=== PATIENT | female | born 1995 | race Two or more races ===

== ENCOUNTER 2016-08-30 18:28 | Emergency (ER) | payer OTHER ==
[~2016-08-30 18:28] MED LIST: ACET50TA PO; COLA100C PO; DIBU1OI TOP; DICL10TA PO; DOCU10CA PO; GLYB125TA PO; GLYB3TA PO; IBUP80TA PO; MOM30SS PO; MOTR200T44 PO; PERC5TAB6 PO; PRENTAB55 PO
[2016-08-30] MEDS ORDERED: ONDANSETRON 4MG/2ML VIAL (J2405) As Ordered ONE (19:09)
[2016-08-30] MEDS ORDERED: KETOROLAC 30 MG/ML VIAL (J1885) As Ordered ONE (19:09)
--- NOTE | 2016-08-30 19:16 | REP ---
Clinical: Epigastric and abdominal pain. Technique: Upright view of the chest with supine and upright views of the abdomen and pelvis. Findings: Frontal upright view of the chest demonstrates no acute cardiopulmonary process or free air below the diaphragm to suspect pneumoperitoneum. Supine and upright views of the abdomen and pelvis demonstrate nonspecific bowel gas pattern without obstruction or perforation. No organomegaly. Tubal ligation clips. No abnormal calcifications. Skeletal structures normal for age. Impression: Nonspecific bowel gas pattern. Signed by Aubrey Owusu MD 08/30/2016 07:08 P
[2016-08-30 19:24] LABS: BASO % 0.5 % (0.0-1.0); EOS # 0.2 K/mm3 (0.0-0.50); EOS % 3.6 % (0.0-3.0); LARGE UNSTAINED CELL # 0.1 K/mm3 (0.0-0.4); LARGE UNSTAINED CELL % 1.8 % (0.0-4.0); LYMPH # 1.2 K/mm3 (1.5-6.5); LYMPH % 23.1 % (24.0-44.0); MEAN CORPUSCULAR HGB CONC 34.1 g/dl (32.0-36.5); MEAN CORPUSCULAR VOLUME 88.1 fl (80.0-96.0); MONO # 0.4 K/mm3 (0.0-0.8); MONO % 6.7 % (0.0-5.0); NEUTROPHILS # 3.4 K/mm3 (1.8-7.7); NEUTROPHILS % 64.3 % (36.0-66.0); PLATELET COUNT, AUTOMATED 207 k/mm3 (150-450); RED CELL DISTRIBUTION WIDTH 11.9 % (11.5-14.5); WHITE BLOOD COUNT 5.3 K/mm3 (4.0-10.0)
[2016-08-30 19:31] LABS: INR 0.89
[2016-08-30 19:50] LABS: ALBUMIN 3.7 GM/DL (3.2-5.2); ALBUMIN/GLOBULIN RATIO 1.09 (1.00-1.93); ALKALINE PHOSPHATASE 106 U/L (45-117); ALT/SGPT 24 U/L (12-78); AMYLASE 53 U/L (25-115); ANION GAP 9 MEQ/L (8-16); AST/SGOT 17 U/L (15-37); BILIRUBIN,DIRECT < 0.1 MG/DL (0.0-0.2); BILIRUBIN,TOTAL 0.2 MG/DL (0.2-1.0); BLOOD UREA NITROGEN 9 MG/DL (7-18); CALCIUM LEVEL 8.3 MG/DL (8.5-10.1); CARBON DIOXIDE LEVEL 25 MEQ/L (21-32); CHLORIDE LEVEL 108 MEQ/L (98-107); CREATININE FOR GFR 0.68 MG/DL (0.55-1.02); GLOMERULAR FILTRATION RATE > 60.0 (>60); GLUCOSE, FASTING 94 MG/DL (70-105); SODIUM LEVEL 142 MEQ/L (136-145); TOTAL PROTEIN 7.1 GM/DL (6.4-8.2)
--- NOTE | 2016-08-30 21:28 | EDDOCDS ---
Nurse's Notes [facility] Name: Rosita Chambers Age: 21 yrs Sex: Female : 1995 Arrival Date: 08/30/2016 Time: 18:28 Bed 14 Private MD: DONI Higgins Diagnosis: Abdominal and pelvic pain Presentation: 08/30 18:47 Presenting complaint: Patient states: states right upper quad pain x 2 days, states ml6 vomited x 1 yesterday. Risk factors: the patient reports no vaginal bleeding. Adult Sepsis Screening: The patient does not have new or worsening altered mentation. Patient's respiratory rate is less than 22. Systolic blood pressure is greater than 100. Patient has a qSOFA score of 0- Negative Sepsis Screen. Suicide/Homicide risk assessment- the patient denies having any suicidal and/or homicidal ideations and does not present with any other emotional, behavioral or mental health complaints. Status: Patient is not a marine service station attendant or dependent. Transition of care: patient was not received from another setting of care. 18:47 Acuity: LIANG Level 3 ml6 18:47 Method Of Arrival: Ambulance ml6 Triage Assessment: 18:48 General: Appears in no apparent distress, Behavior is anxious, cooperative. Pain: ml6 Location: right upper quadrant Pain currently is 5 out of 10 on a pain scale. Pain does not radiate. Quality of pain is described as aching, crampy, Pain began 2-3 days ago Is continuous Alleviated by nothing. Aggravated by increased activity. HIV screening NA for this visit Offered previously. Neurological: No deficits noted. Level of Consciousness is awake, alert, Oriented to person, place, time, Felt Checker are equal bilaterally Moves all extremities. Full function. Cardiovascular: No deficits noted. Capillary refill < 3 seconds is brisk in bilateral fingers toes Heart tones S1 S2 present Edema is absent. Pulses are all present. Respiratory: No deficits noted. Airway is patent Respiratory effort is even, unlabored, Respiratory pattern is regular, symmetrical, Breath sounds are clear bilaterally. GI: Abdomen is obese, Bowel sounds present X 4 quads. Abd is soft X 4 quads Abd is tender to palpation in right upper quadrant Reports nausea, Denies diarrhea, vomiting. Historical: - Allergies: no known allergies; - Home Meds: 1. Vitamin Oral tab 1 tab once daily (Last dose: 08/30/2016 07:00) - PMHx: none; - PSHx: Tubal ligation; - Social history: Smoking status: Patient uses tobacco products, heavy tobacco smoker. No barriers to communication noted, Speaks appropriately for age. - Family history: Not pertinent. - : The pt / caregiver states he / she is not on anticoagulants. Home medication list is obtained from the patient. - Exposure Risk Screening:: None identified. Screenin:50 Screening information is obtained from the patient. Fall risk: No risks identified. ml6 Assistance ADL's: requires no assistance with activities of daily living. Abuse/DV Screen: The patient / caregiver reports he/she is: not in a situation that causes fear, pain or injury. Nutritional screening: No deficits noted. Advance Directives: Currently, there is no health care proxy. home support is adequate. Assessment: 18:48 General: see triage assessment. GI: Abdomen is obese, Bowel sounds present X 4 quads. ml6 Abd is soft X 4 quads Abd is tender to palpation in right upper quadrant Reports nausea, Denies diarrhea, vomiting. 20:00 Reassessment: Patient appears in no apparent distress at this time. Patient states tm5 feeling better. Patient states symptoms have improved. pt ambulated to the bathroom with steady gait & no complaints. 21:24 Reassessment: Patient appears in no apparent distress at this time. Patient states tm5 feeling better. Patient states symptoms have improved. Vital Signs: 18:42 BP 138 / 89 RA Sitting (auto/reg); Pulse 89; Resp 18; Temp 96.8(O); Pulse Ox 98% ; jrd Weight 83.01 kg (R); Height 5 ft. 3 in. (160.02 cm) (R); Pain 6/10; 20:18 BP 126 / 78; Pulse 88; Resp 18; Pulse Ox 99% on R/A; Pain 3/10; tm5 21:25 BP 123 / 78; Pulse 66; Resp 18; Temp 97.7(O); Pulse Ox 97% on R/A; Pain 1/10; jmv 18:42 Body Mass Index 32.42 (83.01 kg, 160.02 cm) [facility] ED Course: 18:29 Patient visited by Aide Lazaro, Food Server. lbd 18:29 Patient moved to Waiting lbd 18:30 DONI Higgins is Private Physician. lbd 18:30 Coni Plummer,ROMINA is Primary Nurse. lbd 18:30 Patient moved to 14 lbd 18:40 [facility]il[facility] FNP [facility]. ke 18:40 Patient visited by Diego Dasilva FNP. ke 18:40 Patient visited by Diego Dasilva FNP. ke 18:44 Patient visited by Melchor Hernandez PCA. jrd 18:48 Triage Initiated ml6 18:51 The patient / caregiver is instructed regarding the plan of care and ED course. js13 18:51 Maintain field IV. Dressing intact. Good blood return noted. Site clean & dry. Gauge & js13 site: 20 gauge LAC. No procedures done that require assistance. 18:55 Patient moved to Radiology js13 19:05 Patient visited by Sintia Keen RN. tm5 19:05 Report received from Bisi Chamorro RN, assumed care of pt at this time. tm5 19:15 Labs drawn. (by ED staff). Sent per order to lab. tm5 19:17 Amylase Sent. tm5 19:17 Basic Metabolic Profile Sent. tm5 19:17 CBC with Diff Sent. tm5 19:17 Lipase Sent. tm5 19:17 Liver Profile Sent. tm5 19:17 Prothrombin Time Profile\E\INR Sent. tm5 19:49 Patient moved to 14 tmb 19:50 Patient visited by Diego Dasilva FNP. ke 19:51 Abdomen, Flat\E\Upright,PA Chest Returned. EDMS 20:17 Patient visited by Sintia Keen RN. tm5 20:17 Urinalysis Sent. tm5 20:17 Urine Culture Sent. tm5 20:17 Urine collected. Clean catch specimen. Urine specimen sent to lab. tm5 20:46 [facility] Payment Agreement was scanned into [employer] and attached to record. zo 20:50 Patient visited by Sintia Keen RN. tm5 21:05 DONI Higgins is Referral Physician. ke 21:05 Guanaco Paniagua is Referral Physician. ke 21:24 Patient visited by Sintia Keen RN. tm5 21:24 Discontinued lock intact, bleeding controlled, pressure dressing applied, No tm5 redness/swelling at site. 21:26 Patient visited by Molina Simons PCA. joyce Administered Medications: 19:17 Drug: NS 0.9% 1000 ml [sodium chloride 0.9 % intravenous solution] Route: IV; Rate: tm5 bolus; Site: left antecubital; 20:50 Follow up: IV Status: Completed infusion; IV Intake: 1000ml tm5 19:17 Drug: Ondansetron 4 mg [ondansetron HCl 2 mg/mL intravenous solution (2 mL)] Route: tm5 IVP; Site: left antecubital; 20:00 Follow up: Response: Nausea is resolved; No Adverse Reaction tm5 19:17 Drug: ketorolac 30 mg [ketorolac 30 mg/mL (1 mL) injection solution (1 mL)] Route: IVP; tm5 Site: left antecubital; 20:00 Follow up: Response: No Adverse Reaction; Pain is decreased tm5 Intake: 20:50 IV: 1000.00ml; Total: 1000.00ml. 5 Order Results: Lab Order: Amylase; SPEC'M 08/30/16 19:15 Test: AMYLASE; Value: 53; Range: 25-115; Units: U/L; Status: F Lab Order: Basic Metabolic Profile; SPEC'M 08/30/16 19:15 Test: GLUCOSE, FASTING; Value: 94; Range: 70-105; Units: MG/DL; Status: F Test: BLOOD UREA NITROGEN; Value: 9; Range: 7-18; Units: MG/DL; Status: F Test: CREATININE FOR GFR; Value: 0.68; Range: 0.55-1.02; Units: MG/DL; Status: F Test: GLOMERULAR FILTRATION RATE; Value: > 60.0; Range: >60; Status: F Test: SODIUM LEVEL; Value: 142; Range: 136-145; Units: MEQ/L; Status: F Test: POTASSIUM SERUM; Value: 4.0; Range: 3.5-5.1; Units: MEQ/L; Status: F Test: CHLORIDE LEVEL; Value: 108; Range: 98-107; Abnormal: Above high normal; Units: MEQ/L; Status: F Test: CARBON DIOXIDE LEVEL; Value: 25; Range: 21-32; Units: MEQ/L; Status: F Test: ANION GAP; Value: 9; Range: 8-16; Units: MEQ/L; Status: F Test: CALCIUM LEVEL; Value: 8.3; Range: 8.5-10.1; Abnormal: Below low normal; Units: MG/DL; Status: F Test Note: ; Units are mL/min/1.73 m2 Chronic Kidney Disease Staging per NKF: Stage I & II GFR >=60 Normal to Mildly Decreased Stage III GFR 30-59 Moderately Decreased Stage IV GFR 15-29 Severely Decreased Stage V GFR <15 Very Little GFR Left ESRD GFR <15 on NPS Lab Order: CBC with Diff; SPEC'M 08/30/16 19:15 Test: WHITE BLOOD COUNT; Value: 5.3; Range: 4.0-10.0; Units: K/mm3; Status: F Test: RED BLOOD COUNT; Value: 4.52; Range: 4.00-5.40; Units: M/mm3; Status: F Test: HEMOGLOBIN; Value: 13.6; Range: 12.0-16.0; Units: g/dl; Status: F Test: HEMATOCRIT; Value: 39.8; Range: 36.0-47.0; Units: %; Status: F Test: MEAN CORPUSCULAR VOLUME; Value: 88.1; Range: 80.0-96.0; Units: fl; Status: F Test: MEAN CORPUSCULAR HEMOGLOBIN; Value: 30.0; Range: 27.0-33.0; Units: pg; Status: F Test: MEAN CORPUSCULAR HGB CONC; Value: 34.1; Range: 32.0-36.5; Units: g/dl; Status: F Test: RED CELL DISTRIBUTION WIDTH; Value: 11.9; Range: 11.5-14.5; Units: %; Status: F Test: PLATELET COUNT, AUTOMATED; Value: 207; Range: 150-450; Units: k/mm3; Status: F Test: NEUTROPHILS %; Value: 64.3; Range: 36.0-66.0; Units: %; Status: F Test: LYMPH %; Value: 23.1; Range: 24.0-44.0; Abnormal: Below low normal; Units: %; Status: F Test: MONO %; Value: 6.7; Range: 0.0-5.0; Abnormal: Above high normal; Units: %; Status: F Test: EOS %; Value: 3.6; Range: 0.0-3.0; Abnormal: Above high normal; Units: %; Status: F Test: BASO %; Value: 0.5; Range: 0.0-1.0; Units: %; Status: F Test: LARGE UNSTAINED CELL %; Value: 1.8; Range: 0.0-4.0; Units: %; Status: F Test: NEUTROPHILS #; Value: 3.4; Range: 1.8-7.7; Units: K/mm3; Status: F Test: LYMPH #; Value: 1.2; Range: 1.5-6.5; Abnormal: Below low normal; Units: K/mm3; Status: F Test: MONO #; Value: 0.4; Range: 0.0-0.8; Units: K/mm3; Status: F Test: EOS #; Value: 0.2; Range: 0.0-0.50; Units: K/mm3; Status: F Test: BASO #; Value: 0.0; Range: 0.0-0.2; Units: K/mm3; Status: F Test: LARGE UNSTAINED CELL #; Value: 0.1; Range: 0.0-0.4; Units: K/mm3; Status: F Lab Order: Lipase; SPEC' 08/30/16 19:15 Test: LIPASE; Value: 133; Range: 73-393; Units: U/L; Status: F Lab Order: Liver Profile; [facility]' 08/30/16 19:15 Test: AST/SGOT; Value: 17; Range: 15-37; Units: U/L; Status: F Test: ALT/SGPT; Value: 24; Range: 12-78; Units: U/L; Status: F Test: ALKALINE PHOSPHATASE; Value: 106; Range: 45-117; Units: U/L; Status: F Test: BILIRUBIN,TOTAL; Value: 0.2; Range: 0.2-1.0; Units: MG/DL; Status: F Test: BILIRUBIN,DIRECT; Value: < 0.1; Range: 0.0-0.2; Units: MG/DL; Status: F Test: TOTAL PROTEIN; Value: 7.1; Range: 6.4-8.2; Units: GM/DL; Status: F Test: ALBUMIN; Value: 3.7; Range: 3.2-5.2; Units: GM/DL; Status: F Test: ALBUMIN/GLOBULIN RATIO; Value: 1.09; Range: 1.00-1.93; Status: F Lab Order: Prothrombin Time Profile\E\INR; [facility] 08/30/16 19:15 Test: PROTHROMBIN TIME; Value: 12.2; Range: 12.3-14.5; Abnormal: Below low normal; Units: SECONDS; Status: F Test: INR; Value: 0.89; Status: F Test Note: ; THERAPUTIC HUMAN INR VALUES INDICATIONS NORMAL RANGES PROPHYLAXIS/TREATMENT OF: VENOUS THROMBOSIS 2.0-3.0 PULMONARY EMBOLISM 2.0-3.0 PREVENTION OF SYSTEMIC EMBOLISM FROM: TISSUE HEART VALVES 2.0-3.0 ACUTE MYOCARDIAL INFARCTION 2.0-3.0 VALVULAR HEART DISEASE 2.0-3.0 ATRIAL FIBRILLATION 2.0-3.0 MECHANICAL VALVES(HIGH RISK) 2.5-3.5 RECURRENT MYOCARDIAL INFARCTION 2.5-3.5 Lab Order: Urinalysis; [facility] 08/30/16 20:18 Test: APPEARANCE, URINE; Value: HAZY; Range: CLEAR; Status: F Test: COLOR, URINE; Value: YELLOW; Range: YELLOW; Status: F Test: PH,URINE; Value: 5.0; Range: 5.0-9.0; Units: UNITS; Status: F Test: SPECIFIC GRAVITY URINE AUTO; Value: 1.025; Range: 1.002-1.035; Status: F Test: PROTEIN, URINE AUTO; Value: NEGATIVE; Range: NEGATIVE; Units: mg/dL; Status: F Test: GLUCOSE, URINE (UA) AUTO; Value: NEGATIVE; Range: NEGATIVE; Units: mg/dL; Status: F Test: KETONE, URINE AUTO; Value: NEGATIVE; Range: NEGATIVE; Units: mg/dL; Status: F Test: UROBILINOGEN, URINE AUTO; Value: 0.2; Range: 0.0-2.0; Units: mg/dL; Status: F Test: BILIRUBIN, URINE AUTO; Value: NEGATIVE; Range: NEGATIVE; Status: F Test: NITRITE, URINE AUTO; Value: NEGATIVE; Range: NEGATIVE; Status: F Test: LEUKOCYTE ESTERASE, URINE AUTO; Value: NEGATIVE; Range: NEGATIVE; Status: F Test: BLOOD, URINE BLOOD; Value: NEGATIVE; Range: NEGATIVE; Status: F Test: WBC, URINE AUTO; Value: 0; Range: 0-3; Units: /HPF; Status: F Test: RBC, URINE AUTO; Value: 3; Range: 0-3; Units: /HPF; Status: F Test: BACTERIA, URINE AUTO; Value: 1+; Range: NEGATIVE; Abnormal: Above high normal; Status: F Test: SQUAMOUS EPITHELIAL CELL UR AU; Value: 3; Range: 0-6; Units: /HPF; Status: F Test: MUCUS, URINE; Value: SMALL; Range: NEGATIVE; Status: F Test: HYALINE CAST, URINE AUTO; Value: 0; Range: 0-1; Units: /LPF; Status: F Radiology Order: Abdomen, Flat\E\Upright,PA Chest Test: Abdomen, Flat\E\Upright,PA Chest REASON FOR EXAMINATION: Abdomen Pain; Clinical: Epigastric and abdominal pain.; ; Technique: Upright view of the chest with supine and upright views of the; abdomen and pelvis.; ; Findings: Frontal upright view of the chest demonstrates no acute; cardiopulmonary process or free air below the diaphragm to suspect; pneumoperitoneum. Supine and upright views of the abdomen and pelvis demonstrate; nonspecific bowel gas pattern without obstruction or perforation. No; organomegaly. Tubal ligation clips. No abnormal calcifications. Skeletal; structures normal for age.; ; Impression:; Nonspecific bowel gas pattern.; ; ; Signed by; Aubrey Owusu MD 08/30/2016 07:08 P; Outcome: 21:06 Discharge ordered by Provider. 21:25 Discharge Assessment: Patient awake, alert and oriented x 3. No cognitive and/or tm5 functional deficits noted. Patient verbalized understanding of disposition instructions. patient administered narcotics - no. The following High Risk Discharge criteria are identified: None. Discharged to home ambulatory, with significant other. Condition: good Condition: stable Condition: improved. Discharge instructions given to patient, Instructed on discharge instructions, follow up and referral plans. medication usage, no driving heavy equipment, Demonstrated understanding of instructions, medications, Pt was receptive of discharge instructions/ teaching. Prescriptions given X 3. Ultrasound Study completed. Property :Personal belongings accompany Pt. 21:28 Patient left the ED. tm5 Signatures: Dispatcher [employer] EDMS Aide Lazaro, Food Server Unit lbd Diego Dasilva, ICHTHYOLOGIST ICHTHYOLOGIST Montse Rangel Matthew, RN RN ml6 Coni Plummer,RN RN js13 Martin Negrete Joseph, PHYSIOLOGICAL CHEMIST PHYSIOLOGICAL CHEMIST jrd Molina Simons, PHYSIOLOGICAL CHEMIST PHYSIOLOGICAL CHEMIST jmv Sintia Keen,RN RN tm5 MTDD
--- NOTE | 2016-08-30 21:28 | EDDOCDS ---
Physician Documentation [facility] Name: Rosita Chambers Age: 21 yrs Sex: Female : 1995 Arrival Date: 08/30/2016 Time: 18:28 Bed 14 Private MD: DONI Higgins Disposition: 08/30 21:06 A printed prescription for a controlled substance(s) was provided because [facility] is not able to accept [facility]. Disposition: 08/30/16 21:06 Discharged to Home/Self Care. Impression: Abdominal and pelvic pain. - Condition is Stable. - Discharge Instructions: Abdominal Pain, Adult. - Prescriptions for [place] 5- 325 mg Oral Tablet - take 1 tablet by ORAL route every 6 hours As needed MDD: 4 tabs; 20 tablet. Prilosec 20 mg Oral Capsule - take 1 capsule by ORAL route once daily; 10 capsule. Zofran 4 mg Oral Tablet - take 1 tablet by ORAL route 4 times per day As needed; 10 tablet. - Medication Reconciliation, Local Pharmacy Hours form. - Follow up: DONI Higgins; When: 4 - 5 days; Reason: Recheck today's complaints, Continuance of care. Follow up: Guanaco Paniagua; When: Call to arrange an appointment; Reason: Further diagnostic work-up, Recheck today's complaints. - Problem is an ongoing problem. - Symptoms have improved. Historical: - Allergies: no known allergies; - Home Meds: 1. Vitamin Oral tab 1 tab once daily (Last dose: 08/30/2016 07:00) - PMHx: none; - PSHx: Tubal ligation; - Social history: Smoking status: Patient uses tobacco products, heavy tobacco smoker. No barriers to communication noted, Speaks appropriately for age. - Family history: Not pertinent. - : The pt / caregiver states he / she is not on anticoagulants. Home medication list is obtained from the patient. - Exposure Risk Screening:: None identified. Vital Signs: 18:42 BP 138 / 89 RA Sitting (auto/reg); Pulse 89; Resp 18; Temp 96.8(O); Pulse Ox 98% ; jrd Weight 83.01 kg / 183.01 lbs (R); Height 5 ft. 3 in. (160.02 cm) (R); Pain 6/10; 20:18 BP 126 / 78; Pulse 88; Resp 18; Pulse Ox 99% on R/A; Pain 3/10; tm5 21:25 BP 123 / 78; Pulse 66; Resp 18; Temp 97.7(O); Pulse Ox 97% on R/A; Pain 1/10; jmv 18:42 Body Mass Index 32.42 (83.01 kg, 160.02 cm) jrd MDM: 18:47 NS 0.9% 1000 ml IV at bolus once ordered. ke 18:47 Ondansetron 4 mg IVP once ordered. ke 18:47 ketorolac 30 mg IVP once ordered. ke 18:47 IV Saline Lock ordered. ke 18:47 Undress patient appropriately for examination ordered. ke 18:48 Amylase Ordered. EDMS 18:48 Basic Metabolic Profile Ordered. EDMS 18:48 CBC with Diff Ordered. EDMS 18:48 Lipase Ordered. EDMS 18:48 Liver Profile Ordered. EDMS 18:48 Prothrombin Time Profile\E\INR Ordered. EDMS 18:48 Urinalysis Ordered. EDMS 18:48 Urine Culture Ordered. EDMS 18:49 Abdomen, Flat\E\Upright,PA Chest Ordered. EDMS 18:49 NOTHING BY MOUTH+DIET ordered. EDMS 19:40 Financial registration complete. zo 19:47 US Gallbladder Ordered. EDMS 20:05 Basic Metabolic Profile Reviewed. ke 20:05 CBC with Diff Reviewed. ke 20:05 Prothrombin Time Profile\E\INR Reviewed. ke 20:05 Amylase Reviewed. ke 20:05 Lipase Reviewed. ke 20:05 Liver Profile Reviewed. ke 20:05 Abdomen, Flat\E\Upright,PA Chest Reviewed. ke 20:46 [facility] Payment Agreement was scanned into [employer] and attached to record. zo 21:00 Urinalysis Reviewed. ke Administered Medications: 19:17 Drug: NS 0.9% 1000 ml [sodium chloride 0.9 % intravenous solution] Route: IV; Rate: tm5 bolus; Site: left antecubital; 20:50 Follow up: IV Status: Completed infusion; IV Intake: 1000ml tm5 19:17 Drug: Ondansetron 4 mg [ondansetron HCl 2 mg/mL intravenous solution (2 mL)] Route: tm5 IVP; Site: left antecubital; 20:00 Follow up: Response: Nausea is resolved; No Adverse Reaction tm5 19:17 Drug: ketorolac 30 mg [ketorolac 30 mg/mL (1 mL) injection solution (1 mL)] Route: IVP; tm5 Site: left antecubital; 20:00 Follow up: Response: No Adverse Reaction; Pain is decreased tm5 Signatures: Dispatcher [employer] EDMS Diego Dasilva, ELECTRIC CAR OPERATOR ELECTRIC CAR OPERATOR Montse Rangel Matthew, RN RN ml6 Coni Plummer RN RN js13 Sintia Keen RN RN tm5 The chart was reviewed and I authenticate all verbal orders and agree with the evaluation and treatment provided.Attachments: 20:46 [facility] Payment Agreement zo MTDD
--- NOTE | 2016-08-30 21:30 | REPUSA ---
Clinical history: Right upper quadrant pain. Findings: The pancreas is limited in visualization secondary to overlying bowel gas, but appears jaqueline sly unremarkable. The liver demonstrates uniform echotexture and echogenicity, with no mass lesions. The gallbladder is unremarkable. The common bile duct measures 3 mm and is within normal limits. The right kidney measures 12.8 cm in length and is unremarkable. There is no ascites. Impression: Unremarkable ultrasound examination of the right upper quadrant.
--- NOTE | 2016-09-01 22:29 | EDDOCDS ---
Physician Documentation [facility] Name: Rosita Chambers Age: 21 yrs Sex: Female : 1995 Arrival Date: 08/30/2016 Time: 18:28 Bed 14 Private MD: DONI Higgins Disposition: 08/30 21:06 A printed prescription for a controlled substance(s) was provided because [facility] is not able to accept [facility]. Disposition: 08/30/16 21:06 Discharged to Home/Self Care. Impression: Abdominal and pelvic pain. - Condition is Stable. - Discharge Instructions: Abdominal Pain, Adult. - Prescriptions for Nardin 5- 325 mg Oral Tablet - take 1 tablet by ORAL route every 6 hours As needed MDD: 4 tabs; 20 tablet. Prilosec 20 mg Oral Capsule - take 1 capsule by ORAL route once daily; 10 capsule. Zofran 4 mg Oral Tablet - take 1 tablet by ORAL route 4 times per day As needed; 10 tablet. - Medication Reconciliation, Local Pharmacy Hours form. - Follow up: DONI Higgins; When: 4 - 5 days; Reason: Recheck today's complaints, Continuance of care. Follow up: [place]; When: Call to arrange an appointment; Reason: Further diagnostic work-up, Recheck today's complaints. - Problem is an ongoing problem. - Symptoms have improved. Historical: - Allergies: no known allergies; - Home Meds: 1. Vitamin Oral tab 1 tab once daily (Last dose: 08/30/2016 07:00) - PMHx: none; - PSHx: Tubal ligation; - Social history: Smoking status: Patient uses tobacco products, heavy tobacco smoker. No barriers to communication noted, Speaks appropriately for age. - Family history: Not pertinent. - : The pt / caregiver states he / she is not on anticoagulants. Home medication list is obtained from the patient. - Exposure Risk Screening:: None identified. Vital Signs: 18:42 BP 138 / 89 RA Sitting (auto/reg); Pulse 89; Resp 18; Temp 96.8(O); Pulse Ox 98% ; jrd Weight 83.01 kg / 183.01 lbs (R); Height 5 ft. 3 in. (160.02 cm) (R); Pain 6/10; 20:18 BP 126 / 78; Pulse 88; Resp 18; Pulse Ox 99% on R/A; Pain 3/10; tm5 21:25 BP 123 / 78; Pulse 66; Resp 18; Temp 97.7(O); Pulse Ox 97% on R/A; Pain 1/10; jmv 18:42 Body Mass Index 32.42 (83.01 kg, 160.02 cm) jrd MDM: 18:47 NS 0.9% 1000 ml IV at bolus once ordered. ke 18:47 Ondansetron 4 mg IVP once ordered. ke 18:47 ketorolac 30 mg IVP once ordered. ke 18:47 IV Saline Lock ordered. ke 18:47 Undress patient appropriately for examination ordered. ke 18:48 Amylase Ordered. EDMS 18:48 Basic Metabolic Profile Ordered. EDMS 18:48 CBC with Diff Ordered. EDMS 18:48 Lipase Ordered. EDMS 18:48 Liver Profile Ordered. EDMS 18:48 Prothrombin Time Profile\E\INR Ordered. EDMS 18:48 Urinalysis Ordered. EDMS 18:48 Urine Culture Ordered. EDMS 18:49 Abdomen, Flat\E\Upright,PA Chest Ordered. EDMS 18:49 NOTHING BY MOUTH+DIET ordered. EDMS 19:40 Financial registration complete. zo 19:47 US Gallbladder Ordered. EDMS 20:05 Basic Metabolic Profile Reviewed. ke 20:05 CBC with Diff Reviewed. ke 20:05 Prothrombin Time Profile\E\INR Reviewed. ke 20:05 Amylase Reviewed. ke 20:05 Lipase Reviewed. ke 20:05 Liver Profile Reviewed. ke 20:05 Abdomen, Flat\E\Upright,PA Chest Reviewed. ke 20:46 [facility] [place] Agreement was scanned into [employer] and attached to record. zo 21:00 Urinalysis Reviewed. ke 08/31 09:30 T-Sheet-- Draft Copy was scanned into [employer] and attached to record. [facility] Administered Medications: 08/30 19:17 Drug: NS 0.9% 1000 ml [sodium chloride 0.9 % intravenous solution] Route: IV; Rate: tm5 bolus; Site: left antecubital; 20:50 Follow up: IV Status: Completed infusion; IV Intake: 1000ml tm5 19:17 Drug: Ondansetron 4 mg [ondansetron HCl 2 mg/mL intravenous solution (2 mL)] Route: tm5 IVP; Site: left antecubital; 20:00 Follow up: Response: Nausea is resolved; No Adverse Reaction tm5 19:17 Drug: ketorolac 30 mg [ketorolac 30 mg/mL (1 mL) injection solution (1 mL)] Route: IVP; tm5 Site: left antecubital; 20:00 Follow up: Response: No Adverse Reaction; Pain is decreased tm5 Signatures: Dispatcher [employer] EDDiego Persaud, COLON AND RECTAL SURGEON Montse Ohara Matthew, RN RN ml6 Coni Plummer RN RN [id number] Sosa Beard Tonya, RN RN tm5 The chart was reviewed and I authenticate all verbal orders and agree with the evaluation and treatment provided.Attachments: 20:46 [facility] Payment Agreement zo 08/31 09:30 T-Sheet-- Draft Copy [facility] Chart Complete MTDD
--- NOTE | 2016-09-01 22:29 | EDDOCDS ---
Physician Documentation [facility] Name: Rosita Chambers Age: 21 yrs Sex: Female : 1995 Arrival Date: 08/30/2016 Time: 18:28 Bed 14 Private MD: DONI Higgins Disposition: 08/30 21:06 A printed prescription for a controlled substance(s) was provided because [facility] is not able to accept [facility]. Disposition: 08/30/16 21:06 Discharged to Home/Self Care. Impression: Abdominal and pelvic pain. - Condition is Stable. - Discharge Instructions: Abdominal Pain, Adult. - Prescriptions for Elora 5- 325 mg Oral Tablet - take 1 tablet by ORAL route every 6 hours As needed MDD: 4 tabs; 20 tablet. Prilosec 20 mg Oral Capsule - take 1 capsule by ORAL route once daily; 10 capsule. Zofran 4 mg Oral Tablet - take 1 tablet by ORAL route 4 times per day As needed; 10 tablet. - Medication Reconciliation, Local Pharmacy Hours form. - Follow up: DONI Higgins; When: 4 - 5 days; Reason: Recheck today's complaints, Continuance of care. Follow up: [place]; When: Call to arrange an appointment; Reason: Further diagnostic work-up, Recheck today's complaints. - Problem is an ongoing problem. - Symptoms have improved. Historical: - Allergies: no known allergies; - Home Meds: 1. Vitamin Oral tab 1 tab once daily (Last dose: 08/30/2016 07:00) - PMHx: none; - PSHx: Tubal ligation; - Social history: Smoking status: Patient uses tobacco products, heavy tobacco smoker. No barriers to communication noted, Speaks appropriately for age. - Family history: Not pertinent. - : The pt / caregiver states he / she is not on anticoagulants. Home medication list is obtained from the patient. - Exposure Risk Screening:: None identified. Vital Signs: 18:42 BP 138 / 89 RA Sitting (auto/reg); Pulse 89; Resp 18; Temp 96.8(O); Pulse Ox 98% ; jrd Weight 83.01 kg / 183.01 lbs (R); Height 5 ft. 3 in. (160.02 cm) (R); Pain 6/10; 20:18 BP 126 / 78; Pulse 88; Resp 18; Pulse Ox 99% on R/A; Pain 3/10; tm5 21:25 BP 123 / 78; Pulse 66; Resp 18; Temp 97.7(O); Pulse Ox 97% on R/A; Pain 1/10; jmv 18:42 Body Mass Index 32.42 (83.01 kg, 160.02 cm) jrd MDM: 18:47 NS 0.9% 1000 ml IV at bolus once ordered. ke 18:47 Ondansetron 4 mg IVP once ordered. ke 18:47 ketorolac 30 mg IVP once ordered. ke 18:47 IV Saline Lock ordered. ke 18:47 Undress patient appropriately for examination ordered. ke 18:48 Amylase Ordered. EDMS 18:48 Basic Metabolic Profile Ordered. EDMS 18:48 CBC with Diff Ordered. EDMS 18:48 Lipase Ordered. EDMS 18:48 Liver Profile Ordered. EDMS 18:48 Prothrombin Time Profile\E\INR Ordered. EDMS 18:48 Urinalysis Ordered. EDMS 18:48 Urine Culture Ordered. EDMS 18:49 Abdomen, Flat\E\Upright,PA Chest Ordered. EDMS 18:49 NOTHING BY MOUTH+DIET ordered. EDMS 19:40 Financial registration complete. zo 19:47 US Gallbladder Ordered. EDMS 20:05 Basic Metabolic Profile Reviewed. ke 20:05 CBC with Diff Reviewed. ke 20:05 Prothrombin Time Profile\E\INR Reviewed. ke 20:05 Amylase Reviewed. ke 20:05 Lipase Reviewed. ke 20:05 Liver Profile Reviewed. ke 20:05 Abdomen, Flat\E\Upright,PA Chest Reviewed. ke 20:46 [facility] [place] Payment Agreement was scanned into [employer] and attached to record. zo 21:00 Urinalysis Reviewed. ke 08/31 09:30 T-Sheet-- Draft Copy was scanned into [employer] and attached to record. [facility] Administered Medications: 08/30 19:17 Drug: NS 0.9% 1000 ml [sodium chloride 0.9 % intravenous solution] Route: IV; Rate: tm5 bolus; Site: left antecubital; 20:50 Follow up: IV Status: Completed infusion; IV Intake: 1000ml tm5 19:17 Drug: Ondansetron 4 mg [ondansetron HCl 2 mg/mL intravenous solution (2 mL)] Route: tm5 IVP; Site: left antecubital; 20:00 Follow up: Response: Nausea is resolved; No Adverse Reaction tm5 19:17 Drug: ketorolac 30 mg [ketorolac 30 mg/mL (1 mL) injection solution (1 mL)] Route: IVP; tm5 Site: left antecubital; 20:00 Follow up: Response: No Adverse Reaction; Pain is decreased tm5 Signatures: Dispatcher [employer] EDDiego Persaud, OPERATIONS INSPECTOR Montse Ohara Matthew, RN RN ml6 Coni Plummer RN RN [id number] Sosa Beard Tonya, RN RN tm5 The chart was reviewed and I authenticate all verbal orders and agree with the evaluation and treatment provided.Attachments: 20:46 [facility] Payment Agreement zo 08/31 09:30 T-Sheet-- Draft Copy [facility] Chart Complete MTDD
--- NOTE | 2016-09-01 22:29 | EDDOCDS ---
Nurse's Notes [facility] Name: Rosita Chambers Age: 21 yrs Sex: Female : 1995 Arrival Date: 08/30/2016 Time: 18:28 Bed 14 Private MD: DONI Higgins Diagnosis: Abdominal and pelvic pain Presentation: 08/30 18:47 Presenting complaint: Patient states: states right upper quad pain x 2 days, states ml6 vomited x 1 yesterday. Risk factors: the patient reports no vaginal bleeding. Adult Sepsis Screening: The patient does not have new or worsening altered mentation. Patient's respiratory rate is less than 22. Systolic blood pressure is greater than 100. Patient has a qSOFA score of 0- Negative Sepsis Screen. Suicide/Homicide risk assessment- the patient denies having any suicidal and/or homicidal ideations and does not present with any other emotional, behavioral or mental health complaints. Status: Patient is not a cloud services architect or dependent. Transition of care: patient was not received from another setting of care. 18:47 Acuity: LIANG Level 3 ml6 18:47 Method Of Arrival: Ambulance ml6 Triage Assessment: 18:48 General: Appears in no apparent distress, Behavior is anxious, cooperative. Pain: ml6 Location: right upper quadrant Pain currently is 5 out of 10 on a pain scale. Pain does not radiate. Quality of pain is described as aching, crampy, Pain began 2-3 days ago Is continuous Alleviated by nothing. Aggravated by increased activity. HIV screening NA for this visit Offered previously. Neurological: No deficits noted. Level of Consciousness is awake, alert, Oriented to person, place, time, Clerical Warehouse Worker are equal bilaterally Moves all extremities. Full function. Cardiovascular: No deficits noted. Capillary refill < 3 seconds is brisk in bilateral fingers toes Heart tones S1 S2 present Edema is absent. Pulses are all present. Respiratory: No deficits noted. Airway is patent Respiratory effort is even, unlabored, Respiratory pattern is regular, symmetrical, Breath sounds are clear bilaterally. GI: Abdomen is obese, Bowel sounds present X 4 quads. Abd is soft X 4 quads Abd is tender to palpation in right upper quadrant Reports nausea, Denies diarrhea, vomiting. Historical: - Allergies: no known allergies; - Home Meds: 1. Vitamin Oral tab 1 tab once daily (Last dose: 08/30/2016 07:00) - PMHx: none; - PSHx: Tubal ligation; - Social history: Smoking status: Patient uses tobacco products, heavy tobacco smoker. No barriers to communication noted, Speaks appropriately for age. - Family history: Not pertinent. - : The pt / caregiver states he / she is not on anticoagulants. Home medication list is obtained from the patient. - Exposure Risk Screening:: None identified. Screenin:50 Screening information is obtained from the patient. Fall risk: No risks identified. ml6 Assistance ADL's: requires no assistance with activities of daily living. Abuse/DV Screen: The patient / caregiver reports he/she is: not in a situation that causes fear, pain or injury. Nutritional screening: No deficits noted. Advance Directives: Currently, there is no health care proxy. home support is adequate. Assessment: 18:48 General: see triage assessment. GI: Abdomen is obese, Bowel sounds present X 4 quads. ml6 Abd is soft X 4 quads Abd is tender to palpation in right upper quadrant Reports nausea, Denies diarrhea, vomiting. 20:00 Reassessment: Patient appears in no apparent distress at this time. Patient states tm5 feeling better. Patient states symptoms have improved. pt ambulated to the bathroom with steady gait & no complaints. 21:24 Reassessment: Patient appears in no apparent distress at this time. Patient states tm5 feeling better. Patient states symptoms have improved. Vital Signs: 18:42 BP 138 / 89 RA Sitting (auto/reg); Pulse 89; Resp 18; Temp 96.8(O); Pulse Ox 98% ; jrd Weight 83.01 kg (R); Height 5 ft. 3 in. (160.02 cm) (R); Pain 6/10; 20:18 BP 126 / 78; Pulse 88; Resp 18; Pulse Ox 99% on R/A; Pain 3/10; tm5 21:25 BP 123 / 78; Pulse 66; Resp 18; Temp 97.7(O); Pulse Ox 97% on R/A; Pain 1/10; jmv 18:42 Body Mass Index 32.42 (83.01 kg, 160.02 cm) [facility] ED Course: 18:29 Patient visited by Aide Lazaro, Account Contact Associate. lbd 18:29 Patient moved to Waiting lbd 18:30 DONI Higgins is Private Physician. lbd 18:30 Coni Plummer,ROMINA is Primary Nurse. lbd 18:30 Patient moved to 14 lbd 18:40 [facility] ke 18:40 Patient visited by Diego Dasilva FNP. ke 18:40 Patient visited by Diego Dasilva FNP. ke 18:44 Patient visited by Melchor Hernandez PCA. jrd 18:48 Triage Initiated ml6 18:51 The patient / caregiver is instructed regarding the plan of care and ED course. js13 18:51 Maintain field IV. Dressing intact. Good blood return noted. Site clean & dry. Gauge & js13 site: 20 gauge LAC. No procedures done that require assistance. 18:55 Patient moved to Radiology js13 19:05 Patient visited by Sintia Keen RN. tm5 19:05 Report received from Bisi Chamorro RN, assumed care of pt at this time. tm5 19:15 Labs drawn. (by ED staff). Sent per order to lab. tm5 19:17 Amylase Sent. tm5 19:17 Basic Metabolic Profile Sent. tm5 19:17 CBC with Diff Sent. tm5 19:17 Lipase Sent. tm5 19:17 Liver Profile Sent. tm5 19:17 Prothrombin Time Profile\E\INR Sent. tm5 19:49 Patient moved to 14 tmb 19:50 Patient visited by Diego Dasilva FNP. ke 19:51 Abdomen, Flat\E\Upright,PA Chest Returned. EDMS 20:17 Patient visited by Sintia Keen RN. tm5 20:17 Urinalysis Sent. tm5 20:17 Urine Culture Sent. tm5 20:17 Urine collected. Clean catch specimen. Urine specimen sent to lab. tm5 20:46 [place] [place] was scanned into AudioCatch and attached to record. zo 20:50 Patient visited by Sintia Keen RN. tm5 21:05 DONI Higgins is Referral Physician. ke 21:05 Guanaco Paniagua is Referral Physician. ke 21:24 Patient visited by Sintia Keen RN. tm5 21:24 Discontinued lock intact, bleeding controlled, pressure dressing applied, No tm5 redness/swelling at site. 21:26 Patient visited by Molina Simons PCA. jmv 21:45 US Gallbladder Returned. EDMS 08/31 09:30 T-Sheet-- Draft Copy was scanned into AudioCatch and attached to record. [facility] Administered Medications: 08/30 19:17 Drug: NS 0.9% 1000 ml [sodium chloride 0.9 % intravenous solution] Route: IV; Rate: tm5 bolus; Site: left antecubital; 20:50 Follow up: IV Status: Completed infusion; IV Intake: 1000ml tm5 19:17 Drug: Ondansetron 4 mg [ondansetron HCl 2 mg/mL intravenous solution (2 mL)] Route: tm5 IVP; Site: left antecubital; 20:00 Follow up: Response: Nausea is resolved; No Adverse Reaction tm5 19:17 Drug: ketorolac 30 mg [ketorolac 30 mg/mL (1 mL) injection solution (1 mL)] Route: IVP; tm5 Site: left antecubital; 20:00 Follow up: Response: No Adverse Reaction; Pain is decreased tm5 Intake: 20:50 IV: 1000.00ml; Total: 1000.00ml. tm5 Order Results: Lab Order: Amylase; SPEC'M 08/30/16 19:15 Test: AMYLASE; Value: 53; Range: 25-115; Units: U/L; Status: F Lab Order: Basic Metabolic Profile; SPEC'M 08/30/16 19:15 Test: GLUCOSE, FASTING; Value: 94; Range: 70-105; Units: MG/DL; Status: F Test: BLOOD UREA NITROGEN; Value: 9; Range: 7-18; Units: MG/DL; Status: F Test: CREATININE FOR GFR; Value: 0.68; Range: 0.55-1.02; Units: MG/DL; Status: F Test: GLOMERULAR FILTRATION RATE; Value: > 60.0; Range: >60; Status: F Test: SODIUM LEVEL; Value: 142; Range: 136-145; Units: MEQ/L; Status: F Test: POTASSIUM SERUM; Value: 4.0; Range: 3.5-5.1; Units: MEQ/L; Status: F Test: CHLORIDE LEVEL; Value: 108; Range: 98-107; Abnormal: Above high normal; Units: MEQ/L; Status: F Test: CARBON DIOXIDE LEVEL; Value: 25; Range: 21-32; Units: MEQ/L; Status: F Test: ANION GAP; Value: 9; Range: 8-16; Units: MEQ/L; Status: F Test: CALCIUM LEVEL; Value: 8.3; Range: 8.5-10.1; Abnormal: Below low normal; Units: MG/DL; Status: F Test Note: ; Units are mL/min/1.73 m2 Chronic Kidney Disease Staging per NKF: Stage I & II GFR >=60 Normal to Mildly Decreased Stage III GFR 30-59 Moderately Decreased Stage IV GFR 15-29 Severely Decreased Stage V GFR <15 Very Little GFR Left ESRD GFR <15 on UNIVERSITY RELATIONS VICE PRESIDENT Lab Order: CBC with Diff; SPEC'M 08/30/16 19:15 Test: WHITE BLOOD COUNT; Value: 5.3; Range: 4.0-10.0; Units: K/mm3; Status: F Test: RED BLOOD COUNT; Value: 4.52; Range: 4.00-5.40; Units: M/mm3; Status: F Test: HEMOGLOBIN; Value: 13.6; Range: 12.0-16.0; Units: g/dl; Status: F Test: HEMATOCRIT; Value: 39.8; Range: 36.0-47.0; Units: %; Status: F Test: MEAN CORPUSCULAR VOLUME; Value: 88.1; Range: 80.0-96.0; Units: fl; Status: F Test: MEAN CORPUSCULAR HEMOGLOBIN; Value: 30.0; Range: 27.0-33.0; Units: pg; Status: F Test: MEAN CORPUSCULAR HGB CONC; Value: 34.1; Range: 32.0-36.5; Units: g/dl; Status: F Test: RED CELL DISTRIBUTION WIDTH; Value: 11.9; Range: 11.5-14.5; Units: %; Status: F Test: PLATELET COUNT, AUTOMATED; Value: 207; Range: 150-450; Units: k/mm3; Status: F Test: NEUTROPHILS %; Value: 64.3; Range: 36.0-66.0; Units: %; Status: F Test: LYMPH %; Value: 23.1; Range: 24.0-44.0; Abnormal: Below low normal; Units: %; Status: F Test: MONO %; Value: 6.7; Range: 0.0-5.0; Abnormal: Above high normal; Units: %; Status: F Test: EOS %; Value: 3.6; Range: 0.0-3.0; Abnormal: Above high normal; Units: %; Status: F Test: BASO %; Value: 0.5; Range: 0.0-1.0; Units: %; Status: F Test: LARGE UNSTAINED CELL %; Value: 1.8; Range: 0.0-4.0; Units: %; Status: F Test: NEUTROPHILS #; Value: 3.4; Range: 1.8-7.7; Units: K/mm3; Status: F Test: LYMPH #; Value: 1.2; Range: 1.5-6.5; Abnormal: Below low normal; Units: K/mm3; Status: F Test: MONO #; Value: 0.4; Range: 0.0-0.8; Units: K/mm3; Status: F Test: EOS #; Value: 0.2; Range: 0.0-0.50; Units: K/mm3; Status: F Test: BASO #; Value: 0.0; Range: 0.0-0.2; Units: K/mm3; Status: F Test: LARGE UNSTAINED CELL #; Value: 0.1; Range: 0.0-0.4; Units: K/mm3; Status: F Lab Order: Lipase; [facility] 08/30/16 19:15 Test: LIPASE; Value: 133; Range: 73-393; Units: U/L; Status: F Lab Order: Liver Profile; [facility] 08/30/16 19:15 Test: AST/SGOT; Value: 17; Range: 15-37; Units: U/L; Status: F Test: ALT/SGPT; Value: 24; Range: 12-78; Units: U/L; Status: F Test: ALKALINE PHOSPHATASE; Value: 106; Range: 45-117; Units: U/L; Status: F Test: BILIRUBIN,TOTAL; Value: 0.2; Range: 0.2-1.0; Units: MG/DL; Status: F Test: BILIRUBIN,DIRECT; Value: < 0.1; Range: 0.0-0.2; Units: MG/DL; Status: F Test: TOTAL PROTEIN; Value: 7.1; Range: 6.4-8.2; Units: GM/DL; Status: F Test: ALBUMIN; Value: 3.7; Range: 3.2-5.2; Units: GM/DL; Status: F Test: ALBUMIN/GLOBULIN RATIO; Value: 1.09; Range: 1.00-1.93; Status: F Lab Order: Prothrombin Time Profile\E\INR; SPEC'M 08/30/16 19:15 Test: PROTHROMBIN TIME; Value: 12.2; Range: 12.3-14.5; Abnormal: Below low normal; Units: SECONDS; Status: F Test: INR; Value: 0.89; Status: F Test Note: ; THERAPUTIC HUMAN INR VALUES INDICATIONS NORMAL RANGES PROPHYLAXIS/TREATMENT OF: VENOUS THROMBOSIS 2.0-3.0 PULMONARY EMBOLISM 2.0-3.0 PREVENTION OF SYSTEMIC EMBOLISM FROM: TISSUE HEART VALVES 2.0-3.0 ACUTE MYOCARDIAL INFARCTION 2.0-3.0 VALVULAR HEART DISEASE 2.0-3.0 ATRIAL FIBRILLATION 2.0-3.0 MECHANICAL VALVES(HIGH RISK) 2.5-3.5 RECURRENT MYOCARDIAL INFARCTION 2.5-3.5 Lab Order: Urinalysis; SPEC'M 08/30/16 20:18 Test: APPEARANCE, URINE; Value: HAZY; Range: CLEAR; Status: F Test: COLOR, URINE; Value: YELLOW; Range: YELLOW; Status: F Test: PH,URINE; Value: 5.0; Range: 5.0-9.0; Units: UNITS; Status: F Test: SPECIFIC GRAVITY URINE AUTO; Value: 1.025; Range: 1.002-1.035; Status: F Test: PROTEIN, URINE AUTO; Value: NEGATIVE; Range: NEGATIVE; Units: mg/dL; Status: F Test: GLUCOSE, URINE (UA) AUTO; Value: NEGATIVE; Range: NEGATIVE; Units: mg/dL; Status: F Test: KETONE, URINE AUTO; Value: NEGATIVE; Range: NEGATIVE; Units: mg/dL; Status: F Test: UROBILINOGEN, URINE AUTO; Value: 0.2; Range: 0.0-2.0; Units: mg/dL; Status: F Test: BILIRUBIN, URINE AUTO; Value: NEGATIVE; Range: NEGATIVE; Status: F Test: NITRITE, URINE AUTO; Value: NEGATIVE; Range: NEGATIVE; Status: F Test: LEUKOCYTE ESTERASE, URINE AUTO; Value: NEGATIVE; Range: NEGATIVE; Status: F Test: BLOOD, URINE BLOOD; Value: NEGATIVE; Range: NEGATIVE; Status: F Test: WBC, URINE AUTO; Value: 0; Range: 0-3; Units: /HPF; Status: F Test: RBC, URINE AUTO; Value: 3; Range: 0-3; Units: /HPF; Status: F Test: BACTERIA, URINE AUTO; Value: 1+; Range: NEGATIVE; Abnormal: Above high normal; Status: F Test: SQUAMOUS EPITHELIAL CELL UR AU; Value: 3; Range: 0-6; Units: /HPF; Status: F Test: MUCUS, URINE; Value: SMALL; Range: NEGATIVE; Status: F Test: HYALINE CAST, URINE AUTO; Value: 0; Range: 0-1; Units: /LPF; Status: F Lab Order: Urine Culture; SPEC'M 08/30/16 20:18 Test: URINE CULTURE; Value: <EXTERNAL COMMENT eCWMed> FULL REPORT IN LAB NOTES (eCW and Medent).; Status: F Test: URINE CULTURE; Value: URINE CULTURE RESULT NO GROWTH CLINICAL SIGNIFICANCE 1 ORGANISM; Status: F Radiology Order: Abdomen, Flat\E\Upright,PA Chest Test: Abdomen, Flat\E\Upright,PA Chest REASON FOR EXAMINATION: Abdomen Pain; Clinical: Epigastric and abdominal pain.; ; Technique: Upright view of the chest with supine and upright views of the; abdomen and pelvis.; ; Findings: Frontal upright view of the chest demonstrates no acute; cardiopulmonary process or free air below the diaphragm to suspect; pneumoperitoneum. Supine and upright views of the abdomen and pelvis demonstrate; nonspecific bowel gas pattern without obstruction or perforation. No; organomegaly. Tubal ligation clips. No abnormal calcifications. Skeletal; structures normal for age.; ; Impression:; Nonspecific bowel gas pattern.; ; ; Signed by; Aubrey Owusu MD 08/30/2016 07:08 P; Radiology Order: US Gallbladder Test: US Gallbladder REASON FOR EXAMINATION: Biliary Colic; ; Clinical history: Right upper quadrant pain.; Findings: The pancreas is limited in visualization secondary to overlying bowel gas, but appears jaqueline; sly unremarkable. The liver demonstrates uniform echotexture and echogenicity, with no mass lesions.; The gallbladder is unremarkable. The common bile duct measures 3 mm and is within normal limits. The; right kidney measures 12.8 cm in length and is unremarkable. There is no ascites.; Impression: Unremarkable ultrasound examination of the right upper quadrant.; ; Outcome: 21:06 Discharge ordered by Provider. ke 21:25 Discharge Assessment: Patient awake, alert and oriented x 3. No cognitive and/or tm5 functional deficits noted. Patient verbalized understanding of disposition instructions. patient administered narcotics - no. The following High Risk Discharge criteria are identified: None. Discharged to home ambulatory, with significant other. Condition: good Condition: stable Condition: improved. Discharge instructions given to patient, Instructed on discharge instructions, follow up and referral plans. medication usage, no driving heavy equipment, Demonstrated understanding of instructions, medications, Pt was receptive of discharge instructions/ teaching. Prescriptions given X 3. Ultrasound Study completed. Property :Personal belongings accompany Pt. 21:28 Patient left the ED. tm5 Signatures: Dispatcher [employer] EDMS Aide Lazaro, Account Contact Associate Unit lbd Diego Dasilva, DATA OPERATIONS MANAGER DATA OPERATIONS MANAGER Montse Rangel Matthew, RN RN ml6 Coni Plummer,RN RN js13 Martin Negrete Joseph, EXCELSIOR MACHINE OPERATOR EXCELSIOR MACHINE OPERATOR Sosa Frazier Jose, EXCELSIOR MACHINE OPERATOR EXCELSIOR MACHINE OPERATOR Sintia Hartman,RN RN tm5 Chart Complete MTDD
== END 2016-08-30 21:28 | disposition home or self-care (01) ==
LOC: M ED 18:28
DX: R10.11 Right upper quadrant pain (principal); R11.2 Nausea with vomiting, unspecified; F17.210 Nicotine dependence, cigarettes, uncomplicated
CPT/HCPCS: 36415; 74022; 76705; 80048; 80076; 81001; 82150; 83690; 85025; 85610; 87086; 96361; 96374; 96375; 99284; J1885; J2405

== ENCOUNTER 2017-03-26 13:15 | Emergency (ER) | payer OTHER ==
[~2017-03-26] VITALS: Ht 160 cm; Wt 71.8 kg
[~2017-03-26 13:15] MED LIST changes: -COLA100C PO; +COLA100C5 PO; +DIBU10OI TOP; -DIBU1OI TOP; +PERC5TAB12 PO; -PERC5TAB6 PO
[2017-03-26] MEDS ORDERED: NORCO, ANEXSIA 5/325MG TABLET (HYDROcodone/ACETAMINOPHEN) PO ONE (14:30)
--- NOTE | 2017-03-26 15:12 | REP ---
Right ankle series: Four views. History: Right ankle pain. Injury. Findings: There are two bone islands in the calcaneus. An os trigonum is seen and there is an accessory ossicle adjacent to the distal fibula. Ankle mortise is intact. There is mild lateral soft tissue swelling. No fracture or subluxation is seen. Impression: Accessory ossicle adjacent to the distal fibula. No fracture is seen. Signed by Harris Madden MD 03/26/2017 06:36 P
[2017-03-26] MEDS ORDERED: NORCOTAB PO ×2 (15:15→15:33)
[2017-03-26 15:39] VITALS: BP 124/62
== END 2017-03-26 15:40 | disposition home or self-care (01) ==
LOC: M ED 13:15
DX: S93.401A Sprain of unspecified ligament of right ankle, initial encounter (principal); X50.1XXA Overexertion from prolonged static or awkward postures, initial encounter; Y92.524 Gas station as the place of occurrence of the external cause; Y93.01 Activity, walking, marching and hiking; Y99.9 Unspecified external cause status; F31.9 Bipolar disorder, unspecified